=== PATIENT | female | born 1995 | race Caucasian/White ===

== ENCOUNTER 2016-04-23 12:06 | Emergency (ER) | payer OTHER ==
[~2016-04-23] VITALS: Ht 165.1 cm; Wt 55.3 kg
[2016-04-23 12:30] VITALS: BP 119/69
--- NOTE | 2016-04-23 13:05 | NUR ---
Patient to bed 02.
--- NOTE | 2016-04-23 13:07 | NUR ---
PATIENT PRESENTS TO ED WITH DUE TO DEHYDRATION . PT STATES ABDIRASHID BEEN VOMITTING AND HAVE DIARRHEA X2 DAYS. SKIN IS PINK/WARM/DRY; AAOX4 WITH EVEN AND STEADY GAIT; LUNGS CLEAR BL; HR EVEN AND REGULAR; PT DENIES ANY FEVER, CP, SOB, OR COUGH AT THIS TIME; PATIENT STATES SORENESS ON BACK DUE TO VOMITTING; PATIENT POSITIONED FOR COMFORT; HOB ELEVATED; BEDRAILS UP X2; BED DOWN. ER MD MADE AWARE OF PT STATUS.
--- NOTE | 2016-04-23 13:30 | NUR ---
PT ABLE TO TOLERATE TWO CUP OF APPLE JUICE NO VOMITTING NO DIARRHEA NOTED Patient discharged with v/s stable. Written and verbal after care instructions given and explained. Patient alert, oriented and verbalized understanding of instructions. Ambulatory with steady gait. All questions addressed prior to discharge. ID band removed. Patient advised to follow up with PMD. Rx of LOMOTIL given. Patient educated on indication of medication including possible reaction and side effects. Opportunity to ask questions provided and answered.
[2016-04-23 13:31] VITALS: BP 118/68
== END 2016-04-23 13:30 | disposition home or self-care (01) ==
LOC: MED 12:06
DX: R19.7 Diarrhea, unspecified (principal); R11.2 Nausea with vomiting, unspecified; R03.1 Nonspecific low blood-pressure reading

== ENCOUNTER 2017-04-12 18:29 | Emergency (ER) | payer SELFPAY ==
[~2017-04-12] VITALS: Ht 160 cm; Wt 68.0 kg
[2017-04-12 19:06] VITALS: BP 125/79
--- NOTE | 2017-04-12 19:13 | NUR ---
PATIENT SEEN YESTERDAY AND RETURNED TODAY TO FIX PRESCRIPTION. FRONT TOOTH PAIN S/P TOOTH EXTRACTION X2 WKS AGO. MINIMAL RT. FACE SWELLING.DR. MERAZ MADE AWARE
[2017-04-12] MEDS ORDERED: HYDROcodone/APAP 5/325 MG 1 TAB TAB PO ONE (19:15)
--- NOTE | 2017-04-12 19:15 | NUR ---
SEEN BY DR. MERAZ IN OF
--- NOTE | 2017-04-12 19:35 | NUR ---
MEDICATED FOR PAIN 11/22. STILL IN OF
--- NOTE | 2017-04-12 19:57 | NUR ---
Patient discharged with v/s stable. Written and verbal after care instructions given and explained. Patient alert, oriented and verbalized understanding of instructions. Ambulatory with steady gait. All questions addressed prior to discharge. ID band removed. Patient advised to follow up with PMD. Rx of PEN VK 250MG, BENADRYL 25MG, NORCO 5/325MG given. Patient educated on indication of medication including possible reaction and side effects. Opportunity to ask questions provided and answered.
[2017-04-12 19:58] VITALS: BP 119/80
== END 2017-04-12 19:57 | disposition home or self-care (01) ==
LOC: MED 18:29
DX: K08.89 Other specified disorders of teeth and supporting structures (principal)
CPT/HCPCS: 99283

== ENCOUNTER 2017-06-02 11:08 | Emergency (ER) | payer MEDICAID ==
[~2017-06-02] VITALS: Ht 160 cm; Wt 68.2 kg
[2017-06-02 11:13] VITALS: BP 142/88
--- NOTE | 2017-06-02 11:19 | NUR ---
23F BIB SELF C/O ABDOMINAL PAIN X 2 MONTHS AND COUGH X 2 WEEKS. DENIES N/V/D; SKIN IS PINK/WARM/DRY; AAOX4 WITH EVEN AND STEADY GAIT; LUNGS CLEAR BL; HR EVEN AND REGULAR; PT DENIES ANY FEVER, CP AT THIS TIME; PATIENT STATES PAIN OF 9/10 AT THIS TIME; VSS; PATIENT POSITIONED FOR COMFORT; HOB ELEVATED; BEDRAILS UP X2; BED DOWN. ER MD MADE AWARE OF PT STATUS.
--- NOTE | 2017-06-02 12:37 | NUR ---
RACHEL POLO CHAPERONED ER MD DR. GARCIA FOR FEMALE PT PELVIC EXAM.
[2017-06-02] MEDS ORDERED: cefTRIAXone 1,000 MG in LIDOCAINE MPF 1% - **ER/OR** 2.1 ML IM ONE (14:00)
--- NOTE | 2017-06-02 14:44 | NUR ---
Patient discharged with v/s stable. Written and verbal after care instructions given and explained. Patient alert, oriented and verbalized understanding of instructions. Ambulatory with steady gait. All questions addressed prior to discharge. ID band removed. Patient advised to follow up with PMD. Rx of DOXYCYCLINE, NAPROSYN given. Patient educated on indication of medication including possible reaction and side effects. Opportunity to ask questions provided and answered.
[2017-06-02 14:45] VITALS: BP 142/88
[2017-06-04 06:29] LABS: CHLAMYDIA TRACHOMATIS AMP DNA Negative (Negative)
== END 2017-06-02 14:44 | disposition home or self-care (01) ==
LOC: MED 11:08
DX: N76.0 Acute vaginitis (principal)
CPT/HCPCS: 36415; 81002; 81025; 87070; 87210; 87491; 96372; 99284; J0696; J2001

== ENCOUNTER 2020-02-01 11:37 | Emergency (ER) | payer OTHER ==
[~2020-02-01] VITALS: Ht 160 cm; Wt 96.2 kg
[2020-02-01 11:40] VITALS: BP 141/96
[2020-02-01] MEDS ORDERED: KETOROLAC 30 MG/ML VIAL IVP ONE (12:00)
[2020-02-01] MEDS ORDERED: LORazepam 2 MG/ML VIAL IVP ONE (12:00)
[2020-02-01] MEDS ORDERED: NACL 0.9% 1,000 ML IV ONE (12:00)
--- NOTE | 2020-02-01 12:00 | NUR ---
25 Y/O female comes from home presents to ED c/o chest pain 8/10 radiating to right arm that started this morning. Pt also c/o severe anxiety, states she has been out of her anxiety medication x1 week, pt trembling and hyperventilating. Pt states her pain is r/t to feeling anxious. ERMD aware of pt status. Pt positioned for comfort, bed locked in lowest position. Hx: anxiety, gastritis NKDA
--- NOTE | 2020-02-01 12:15 | NUR ---
LAB AT BEDSIDE
--- NOTE | 2020-02-01 12:18 | NUR ---
X-RAY AT BEDSIDE
[2020-02-01 12:22] LABS: HEMATOCRIT 43.7 % (36-48); HEMOGLOBIN 14.7 g/dL (12.0-16.0); MEAN CORPUSCULAR HEMOGLOBIN 30 pg (27-31); MEAN CORPUSCULAR HGB CONC 34 g/dL (33-37); MEAN CORPUSCULAR VOLUME 90.1 fL (80-94); RED BLOOD CELL COUNT(AUTO) 4.86 MIL/uL (4.20-5.40); WHITE BLOOD COUNT (AUTO) 9.6 K/uL (4.8-10.8)
[2020-02-01 12:23] LABS: BASOPHILS % (AUTO) 0.8 % (0.0-2.0); EOSINOPHILS # (AUTO) 0.1 K/uL (0-0.4); EOSINOPHILS % (AUTO) 0.7 % (0.0-4.0); LYMPHOCYTES # (AUTO) 1.7 K/uL (2.5-16.5); LYMPHOCYTES % (AUTO) 17.6 % (20.5-51.1); MONOCYTES # (AUTO) 0.5 K/uL (0.8-1.0); MONOCYTES % (AUTO) 5.6 % (1.7-9.3); NEUTROPHILS # (AUTO) 7.2 K/uL (1.8-7.7); NEUTROPHILS % (AUTO) 75.3 % (42.2-75.2); PLATELET COUNT (AUTO) 307 K/uL (140-450); RED CELL DISTRIBUTION WIDTH 13.5 % (11.6-13.7)
[2020-02-01 12:24] LABS: BASOPHILS # (AUTO) 0.1 K/uL (0.00-0.22)
--- NOTE | 2020-02-01 12:25 | NUR ---
EMT DOING EKG AT BEDSIDE
[2020-02-01] MEDS ORDERED: ONDANSETRON 4 MG/2 ML VIAL IVP ONE (12:55)
[2020-02-01 13:01] LABS: ANION GAP 17.4 (8-16); POTASSIUM 3.4 mmol/L (3.5-5.1)
[2020-02-01 13:02] LABS: CREATININE 0.6 mg/dL (0.6-1.3)
[2020-02-01 14:17] VITALS: BP 132/95
--- NOTE | 2020-02-01 14:17 | NUR ---
Patient discharged with v/s stable. Written and verbal after care instructions given and explained. Patient alert, oriented and verbalized understanding of instructions. Ambulatory with steady gait. All questions addressed prior to discharge. ID band removed. Patient advised to follow up with PMD. Rx of ATIVAN, ZOFRAN given. Patient educated on indication of medication including possible reaction and side effects. Opportunity to ask questions provided and answered.
--- NOTE | 2020-02-02 23:15 | NUR ---
LATE ENTRY- NORMAL SALINE 0.9% DISCONTINUED AT 1330
== END 2020-02-01 14:17 | disposition home or self-care (01) ==
LOC: MED 11:37
DX: R07.9 Chest pain, unspecified (principal); F41.9 Anxiety disorder, unspecified; K21.9 Gastro-esophageal reflux disease without esophagitis
CPT/HCPCS: 36415; 71045; 80048; 84484; 85025; 93005; 96361; 96374; 96375; 99285; J1885; J2060; J2405; J7030

== ENCOUNTER 2020-02-12 07:36 | Emergency (ER) | payer OTHER ==
[~2020-02-12] VITALS: Ht 160 cm; Wt 95.3 kg
[2020-02-12 07:42] VITALS: BP 129/80
[2020-02-12] MEDS ORDERED: PANTOPRAZOLE 40 MG INJ VIAL IVP ONE (08:05)
[2020-02-12] MEDS ORDERED: NACL 0.9% 1,000 ML IV ONE (08:05)
[2020-02-12] MEDS ORDERED: ONDANSETRON 4 MG/2 ML VIAL IVP ONE (08:05)
[2020-02-12] MEDS ORDERED: KETOROLAC 30 MG/ML VIAL IVP ONE ×2 (08:05→10:55)
--- NOTE | 2020-02-12 08:07 | NUR ---
Dr. Chicas is evaluating the patient at bedside.
--- NOTE | 2020-02-12 08:10 | NUR ---
LABS COLLECTED AND SENT TO LAB
--- NOTE | 2020-02-12 08:11 | NUR ---
25 YO F BIB SELF FOR C/C OF 9 DIFFUSE ABD PAIN X2 DAYS. PT REPORT N/V AND DECREASED APPETITE. PT STATES SHE HAS COFFEE GROUND EMESIS X1 THIS MORNING. PT ADMITS TO HEAVY VODKA INTAKE FOR YEARS. PT STATES SHE HAS PERVIOUS HX OF GASTRITIS. BOWEL SOUNDS NORMOACTIVE THROUGHOUT. PT IS TACCHYCARDIC AT 118. AFEBRILE, DENIES SOB/COUGH. MILLER ROD MILL/PULSE OX IN PLACE. BED LOCKED AND IN LOWEST POSITION. SIDE RAILS X1. MED HX: GASTRITIS, ANXIETY RX: LORAZEPAM NKA
--- NOTE | 2020-02-12 08:12 | NUR ---
MARC MARTINEZ AT BEDSIDE
[2020-02-12 08:17] LABS: BASOPHILS # (AUTO) 0.1 K/uL (0.00-0.22); BASOPHILS % (AUTO) 0.7 % (0.0-2.0); EOSINOPHILS # (AUTO) 0.1 K/uL (0-0.4); EOSINOPHILS % (AUTO) 1.2 % (0.0-4.0); HEMATOCRIT 47.3 % (36-48); LYMPHOCYTES # (AUTO) 2.2 K/uL (2.5-16.5); LYMPHOCYTES % (AUTO) 22.4 % (20.5-51.1); MEAN CORPUSCULAR HEMOGLOBIN 31 pg (27-31); MEAN CORPUSCULAR HGB CONC 34 g/dL (33-37); MEAN CORPUSCULAR VOLUME 90.7 fL (80-94); MONOCYTES # (AUTO) 0.7 K/uL (0.8-1.0); MONOCYTES % (AUTO) 7.1 % (1.7-9.3); NEUTROPHILS # (AUTO) 6.6 K/uL (1.8-7.7); NEUTROPHILS % (AUTO) 68.6 % (42.2-75.2); PLATELET COUNT (AUTO) 292 K/uL (140-450); RED BLOOD CELL COUNT(AUTO) 5.22 MIL/uL (4.20-5.40); RED CELL DISTRIBUTION WIDTH 14.3 % (11.6-13.7); WHITE BLOOD COUNT (AUTO) 9.7 K/uL (4.8-10.8)
--- NOTE | 2020-02-12 08:28 | NUR ---
PT TAKEN TO XRAY VIA WHEELCHAIR.
[2020-02-12 08:40] LABS: ALBUMIN 4.7 g/dL (3.4-5.0); ANION GAP 15.9 (8-16); CREATININE 0.6 mg/dL (0.6-1.3); POTASSIUM 3.9 mmol/L (3.5-5.1); TOTAL BILIRUBIN 1.4 mg/dL (0.0-1.0)
--- NOTE | 2020-02-12 08:46 | NUR ---
PT BACK FROM RAD. PLACED BACK ON MONITOR/O2 SAT. BED LOCKED AND IN LOWEST POSITION.
--- NOTE | 2020-02-12 09:53 | NUR ---
PT STATES PAIN IS 6/10 NOW. DENIES NEED FOR FUTHER PAIN MANAGEMENT.
--- NOTE | 2020-02-12 10:29 | NUR ---
Patient transferred to chair C for further care. RN evaluating patient at bedside.
--- NOTE | 2020-02-12 11:00 | NUR ---
Patient discharged with v/s stable. Written and verbal after care instructions given and explained. Patient alert, oriented and verbalized understanding of instructions. Ambulatory with steady gait. All questions addressed prior to discharge. ID band removed. Patient advised to follow up with PMD. Rx of zofran, tramadol, protonix given. Patient educated on indication of medication including possible reaction and side effects. Opportunity to ask questions provided and answered.
[2020-02-12 12:45] VITALS: BP 127/78
== END 2020-02-12 11:00 | disposition home or self-care (01) ==
LOC: MED 07:36
DX: A08.4 Viral intestinal infection, unspecified (principal); R03.0 Elevated blood-pressure reading, without diagnosis of hypertension; K21.9 Gastro-esophageal reflux disease without esophagitis
CPT/HCPCS: 36415; 74022; 80053; 81002; 81025; 83690; 85025; 96361; 96374; 96375; 99284; C9113; J1885; J2405; J7030

== ENCOUNTER 2020-03-07 08:22 | Emergency (ER) | payer OTHER ==
[~2020-03-07] VITALS: Ht 160 cm; Wt 90.7 kg
[2020-03-07 08:33] VITALS: BP 131/76
--- NOTE | 2020-03-07 08:38 | NUR ---
c/o face & stomach numbness, slightly difficult breathing s/p panic attack x today. covid tested 02/27/20 : negative. PMH: GASTRITIS, GASTRITIS
--- NOTE | 2020-03-07 09:59 | NUR ---
Patient being evaluated by DR GARCIA at bedside.
[2020-03-07] MEDS ORDERED: LORazepam 2 MG/ML VIAL IM ONE (10:00)
--- NOTE | 2020-03-07 10:36 | NUR ---
Patient discharged with v/s stable. Written and verbal after care instructions given and explained. Patient verbalized understanding. Ambulatory with steady gait. All questions addressed prior to discharge. Advised to follow up with PMD.
[2020-03-07 10:39] VITALS: BP 131/76
== END 2020-03-07 10:36 | disposition home or self-care (01) ==
LOC: MED 08:22
DX: F41.9 Anxiety disorder, unspecified (principal); K21.9 Gastro-esophageal reflux disease without esophagitis; R06.4 Hyperventilation
CPT/HCPCS: 81002; 81025; 96372; 99283; J2060

== ENCOUNTER 2020-04-04 13:45 | Emergency (ER) | payer OTHER ==
[~2020-04-04] VITALS: Ht 160 cm; Wt 90.7 kg
[2020-04-04 13:52] VITALS: BP 139/91
--- NOTE | 2020-04-04 14:00 | NUR ---
25 YO F BIB SELF FOR C/C OF ANXIETY. PT STATES SHE HAS BEEN UNDER ALOT OF STRESS DUE TO NOT HAVING A PERMANENT RESIDENCE AND STAYING WITH FAMILY MEMBERS. PT STATES WORK AND HER CHILDREN ARE ALSO CAUSING HER STRESS. PT REPORTS NUMBNESS/TINGELING IN EXTREMETIES, SOB, PRESSURE IN HER CHEST, AND N/V X4 TODAY. PT STATES THAT IS HOW HER ANXIETY ATTACKS MANIFEST. PT PRESCRIBED RX OF ATIVAN FOR ANXIETY BUT RAN OUT OF RX 02/01. LUNG SOUNDS CLEAR THROUGHOUT. BED LOCKED AND IN LOWEST POSITION. SIDE RAILS X1. MED HX: ANXIETY, GASTRITIS RX: ATIVAN
[2020-04-04] MEDS ORDERED: LORazepam 1 MG TAB PO ONE (14:05)
--- NOTE | 2020-04-04 14:55 | NUR ---
EKG AT BEDSIDE
[2020-04-04] MEDS ORDERED: ACETAMINOPHEN 325 MG TAB PO ONE (15:00)
--- NOTE | 2020-04-04 15:00 | NUR ---
PT RESTING IN BED WITH NO OBVIOUS DISTRESS. ALL PT NEEDS MET. BED LOCKED IN LOWEST POSITION, SIDE RAILS X 1, CALL LIGHT IN REACH
[2020-04-04 15:12] VITALS: BP 139/91
--- NOTE | 2020-04-04 15:12 | NUR ---
Patient discharged with v/s stable. Written and verbal after care instructions given and explained. Patient alert, oriented and verbalized understanding of instructions. Ambulatory with steady gait. All questions addressed prior to discharge. ID band removed. Patient advised to follow up with PMD. Rx of Hydroxyzine given. Patient educated on indication of medication including possible reaction and side effects. Opportunity to ask questions provided and answered.
== END 2020-04-04 15:12 | disposition home or self-care (01) ==
LOC: MED 13:45
DX: F41.9 Anxiety disorder, unspecified (principal)
CPT/HCPCS: 93005; 99283

== ENCOUNTER 2020-04-04 20:20 | Emergency (ER) | payer OTHER ==
[~2020-04-04] VITALS: Ht 160 cm; Wt 90.7 kg
[2020-04-04 20:25] VITALS: BP 121/83
--- NOTE | 2020-04-04 20:38 | NUR ---
ermd at bedside evaluating pt
[2020-04-04] MEDS ORDERED: NACL 0.9% 1,000 ML IV ONE (20:40)
[2020-04-04] MEDS ORDERED: LORazepam 2 MG/ML VIAL IVP ONE ×2 (20:40→21:55)
--- NOTE | 2020-04-04 21:05 | NUR ---
PT WAS SEEN HERE TODAY AT 1300 FOR SAME ISSUE. C/O DIFFUSE ABD PAIN 11/22, ABD TENDERNESS, +N/V/D, UNABLE TO KEEP AND FOOD OR LIQUID DOWN. PT STATES HER HANDS ARE CRAMPING. PT HAS A HX OF ANXIETY AND BELIEVES SHE IS HAVING AN ANXIETY ATTACK. WHEN SHE WAS SEEN HERE EARLIER SHE WAS PRESCRIBED ATARAX BUT STATES ITS NOT HELPING. AFEBRILE, NO SOB. HX GERD, ANXIETY NKA
--- NOTE | 2020-04-04 21:29 | NUR ---
IV FLUIDS STILL INFUSING. PT CONTINUES TO C/O ABD PAIN, TINGLING AND FEELING LIKE BUGS ARE CRAWLING ALL OVER HER. MD VILLAGRAN AWARE. NO NEW ORDERS
--- NOTE | 2020-04-04 21:52 | NUR ---
PT STILL COMPLAINING OF CRAMPING TO HANDS AND BODY TINGLING. AWARE
[2020-04-04] MEDS ORDERED: KETOROLAC 30 MG/ML VIAL IVP ONE (21:55)
--- NOTE | 2020-04-04 22:04 | NUR ---
LAB AT BEDSIDE
[2020-04-04 22:28] LABS: ANION GAP 11.4 (8-16); CARBON DIOXIDE 26.2 mmol/L (21-32); CREATININE 0.6 mg/dL (0.6-1.3); POTASSIUM 3.6 mmol/L (3.5-5.1)
[2020-04-04 23:03] VITALS: BP 119/83
== END 2020-04-04 23:03 | disposition home or self-care (01) ==
LOC: MED 20:20
DX: F41.9 Anxiety disorder, unspecified (principal); R11.2 Nausea with vomiting, unspecified; K21.9 Gastro-esophageal reflux disease without esophagitis
CPT/HCPCS: 36415; 80048; 96361; 96374; 96375; 96376; 99284; J1885; J2060; J7030

== ENCOUNTER 2020-04-25 14:10 | Emergency (ER) | payer OTHER ==
[~2020-04-25] VITALS: Ht 160 cm; Wt 93.9 kg
[2020-04-25 14:20] VITALS: BP 130/75
--- NOTE | 2020-04-25 14:42 | NUR ---
PATIENT AMBULATED WITH STEADY GAIT TO BED 10.
[2020-04-25] MEDS ORDERED: ACETAMINOPHEN 325 MG TAB PO ONE (15:00)
[2020-04-25] MEDS ORDERED: ONDANSETRON 4 MG ODT PO ONE (15:00)
--- NOTE | 2020-04-25 16:31 | NUR ---
Patient discharged with v/s stable, IN NAD, AAOX4. Written and verbal after care instructions given and explained. Patient alert, oriented and verbalized understanding of instructions. Ambulatory with steady gait. All questions addressed prior to discharge. ID band removed, NO IV ACCESS THIS VISIT. Patient advised to follow up with PMD. Rx of TAMIFLU, TYLENOL, ZOFRAN, MACROBID given. Patient educated on indication of medication including possible reaction and side effects. Opportunity to ask questions provided and answered.
== END 2020-04-25 16:31 | disposition home or self-care (01) ==
LOC: MED 14:10
DX: M79.10 Myalgia, unspecified site (principal); R11.2 Nausea with vomiting, unspecified; R19.7 Diarrhea, unspecified; Z20.828 Contact with and (suspected) exposure to other viral communicable diseases
CPT/HCPCS: 81002; 81025; 87086; 87426; 87804; 99283; Q0162

== ENCOUNTER 2020-05-02 14:15 | Emergency (ER) | payer OTHER ==
[~2020-05-02] VITALS: Ht 165.1 cm; Wt 77.1 kg
[2020-05-02 14:17] VITALS: BP 134/92
--- NOTE | 2020-05-02 14:19 | NUR ---
PT SENT TO ER LOBBY TO WAIT FOR AVAILABLE BED
--- NOTE | 2020-05-02 14:58 | NUR ---
BIBA FROM HOME C/O ANXIETY THAT STARTED AT 1100 THIS AM. PT STATES RAN OUT OF ATIVAN AND REQUESTING REFILL HX GASTRITIS, ANXIETY
--- NOTE | 2020-05-02 15:20 | NUR ---
PATIENT LEFT WITHOUT BEING SEEN BY DR. MARTINEZ. NO FURTHER CARE PROVIDED FOR PATIENT.
== END 2020-05-02 15:20 | disposition left against medical advice (07) ==
LOC: MED 14:15
DX: F41.9 Anxiety disorder, unspecified (principal); Z53.21 Procedure and treatment not carried out due to patient leaving prior to being seen by health care provider

== ENCOUNTER 2020-05-02 22:19 | Emergency (ER) | payer OTHER ==
[~2020-05-02] VITALS: Ht 160 cm; Wt 93.9 kg
[2020-05-02 22:24] VITALS: BP 128/90
[2020-05-02] MEDS ORDERED: LORazepam 1 MG TAB PO ONE (22:35)
[2020-05-02 23:01] VITALS: BP 128/90
== END 2020-05-02 23:01 | disposition home or self-care (01) ==
LOC: MED 22:19
DX: F41.9 Anxiety disorder, unspecified (principal); R03.0 Elevated blood-pressure reading, without diagnosis of hypertension
CPT/HCPCS: 99281